=== PATIENT | male | born 1980 | race African-American/Black ===

== ENCOUNTER 2019-08-20 03:58 | Inpatient (IN) | payer SELFPAY ==
[~2019-08-20] VITALS: Ht 180.3 cm; Wt 116.1 kg
[2019-08-20] MEDS ORDERED: ASPIRIN 325MG TABLET PO ONE (05:45)
[2019-08-20] MEDS ORDERED: MAGNESIUM/ALUMINUM HYDROXIDE/SIMETHICONE 30ML UDC PO ONE (05:45)
[2019-08-20] MEDS ORDERED: VISCOUS LIDOCAINE 2% 15 ML UDC PO ONE (05:45)
[2019-08-20 06:11] LABS: BASOPHILS % 0.4 % (0.0-2.0); EOSINOPHILS % 0.7 % (0.0-5.0); HEMATOCRIT. 38.4 % (42.0-52.0); HEMOGLOBIN. 12.3 g/dL (14.0-18.0); LYMPHOCYTES % 30.1 % (20.0-50.0); MEAN CORPUSCULAR HEMOGLOBIN 25.2 pg (28.0-32.0); MEAN CORPUSCULAR VOLUME 78.4 fL (80.0-94.0); MEAN PLATELET VOLUME 9.2 fl (7.4-10.4); MONOCYTES % 7.5 % (2.0-8.0); NEUTROPHILS % 61.3 % (40.0-76.0); PLATELET 222 x1000/uL (130-400); RED CELL DISTRIBUTION WIDTH 15.3 % (11.6-14.6)
[2019-08-20 06:19] LABS: CHLORIDE 104 mEq/L (98-107)
[2019-08-20 15:15] VITALS: BP 148/101
[2019-08-20] MEDS ORDERED: ONDANSETRON HCL 4MG/2ML INJ IV PRN (15:15)
[2019-08-20] MEDS ORDERED: MAGNESIUM/ALUMINUM HYDROXIDE/SIMETHICONE 30ML UDC PO PRN (15:15)
[2019-08-20] MEDS ORDERED: DIPHENHYDRAMINE 50MG/ML VIAL IV PRN (15:15)
[2019-08-20] MEDS ORDERED: ACETAMINOPHEN 325MG TABLET PO PRN (15:15)
[2019-08-20 16:00] VITALS: BP 148/101
[2019-08-20] MEDS: PANTOPRAZOLE SODIUM 40 MG/VIAL IV SCH ×2 (16:07→21:06)
[2019-08-20] MEDS: SODIUM CHLORIDE 0.9% 1,000 ML IV SCH (16:09)
[2019-08-20] MEDS: CLONIDINE 0.1MG TABLET PO PRN (16:23)
[2019-08-20 17:39] LABS: HEMATOCRIT 38.2 % (42.0-52.0); HEMOGLOBIN 12.2 g/dL (14.0-18.0); MEAN CORPUSCULAR HEMOGLOBIN 24.8 pg (28.0-32.0); MEAN CORPUSCULAR VOLUME 77.9 fL (80.0-94.0); PLATELET 221 x1000/uL (130-400); RED CELL DISTRIBUTION WIDTH 15.4 % (11.6-14.6)
[2019-08-20 20:00] VITALS: BP 127/89
[2019-08-21] VITALS: BP 133/88
[2019-08-21 04:00] VITALS: BP 137/94
[2019-08-21] MEDS: SODIUM CHLORIDE 0.9% 1,000 ML IV SCH ×3 (04:49→21:19)
[2019-08-21 08:00] VITALS: BP 160/102
[2019-08-21] MEDS: PANTOPRAZOLE SODIUM 40 MG/VIAL IV SCH ×2 (08:32→21:12)
[2019-08-21] MEDS: CLONIDINE 0.1MG TABLET PO PRN (08:32)
[2019-08-21] MEDS ORDERED: PANTOPRAZOLE SODIUM 40 MG/VIAL IV SCH (09:00)
[2019-08-21 12:00] VITALS: BP 122/85
[2019-08-21 16:00] VITALS: BP 146/93
[2019-08-21] MEDS ORDERED: SORBITOL 70% SOLN 30ML PO NR ×2 (16:00→20:00)
[2019-08-21 16:30] LABS: HEMOGLOBIN 12.1 g/dL (14.0-18.0); MEAN CORPUSCULAR HEMOGLOBIN 25.1 pg (28.0-32.0); MEAN CORPUSCULAR VOLUME 78.5 fL (80.0-94.0); PLATELET 212 x1000/uL (130-400); RED BLOOD CELL COUNT 4.84 mill/uL (4.7-6.1); RED CELL DISTRIBUTION WIDTH 15.2 % (11.6-14.6)
[2019-08-21 20:00] VITALS: BP 133/84
[2019-08-22] VITALS: BP 135/83
[2019-08-22 04:00] VITALS: BP 131/86
[2019-08-22 06:08] LABS: BASOPHILS % 0.4 % (0.0-2.0); EOSINOPHILS % 1.3 % (0.0-5.0); HEMATOCRIT. 38.7 % (42.0-52.0); HEMOGLOBIN. 12.4 g/dL (14.0-18.0); MEAN CORPUSCULAR VOLUME 77.9 fL (80.0-94.0); MEAN PLATELET VOLUME 8.9 fl (7.4-10.4); MONOCYTES % 7.6 % (2.0-8.0); NEUTROPHILS % 61.7 % (40.0-76.0); PLATELET 205 x1000/uL (130-400); RED BLOOD CELL COUNT 4.97 mill/uL (4.7-6.1); RED CELL DISTRIBUTION WIDTH 15.5 % (11.6-14.6)
[2019-08-22 06:15] LABS: INR 1.1; PROTHROMBIN TIME 11.4 sec (9.6-11.0)
[2019-08-22 06:18] LABS: CHLORIDE 108 mEq/L (98-107)
[2019-08-22] MEDS ORDERED: NA PHOS,M-B/NA PHOS,DI-BA ENEMA 118ML PR NR (07:00)
[2019-08-22 08:00] VITALS: BP 120/85
[2019-08-22] MEDS: PANTOPRAZOLE SODIUM 40 MG/VIAL IV SCH (08:26)
[2019-08-22] MEDS: SODIUM CHLORIDE 0.9% 1,000 ML IV SCH (08:26)
[2019-08-22] MEDS ORDERED: MIDAZOLAM HCL 5 MG/5 ML VIAL IV PRN (10:57)
[2019-08-22] MEDS ORDERED: MIDAZOLAM HCL 5 MG/5 ML VIAL ONE (10:57)
[2019-08-22] MEDS ORDERED: FENTANYL CITRATE/PF 50MCG/ML 2ML VIAL ONE (10:57)
[2019-08-22] MEDS ORDERED: FENTANYL CITRATE/PF 50MCG/ML 2ML VIAL IV PRN (10:59)
== END 2019-08-22 14:49 | disposition home or self-care (01) | DRG 254 ==
LOC: ER 04:49 → 6EST 09:14 → EDBEDREQSVC 09:18 → EDBEDREQTM 09:18 → EDBEDREQ 09:18 → ENRESERV 13:08
PROVIDERS: ADMIT Internal Medicine; ATTEND Internal Medicine
PROC: 0DBQ8ZZ Excision of Anus, Via Natural or Artificial Opening Endoscopic (ICD-10-PCS; principal; 2019-08-22)
DX: K62.0 Anal polyp (principal); K92.2 Gastrointestinal hemorrhage, unspecified; R07.9 Chest pain, unspecified; D64.9 Anemia, unspecified; E66.9 Obesity, unspecified; I10 Essential (primary) hypertension; Z68.35 Body mass index [BMI] 35.0-35.9, adult
CPT/HCPCS: 36415; 71045; 80053; 83880; 84484; 85025; 85027; 86850; 86900; 93005; 99285; C9113; J2250; J3010; J7030

== ENCOUNTER 2021-04-27 21:46 | Inpatient (IN) | payer OTHER ==
[~2021-04-27] VITALS: Ht 180.3 cm; Wt 109.3 kg
[2021-04-27] MEDS ORDERED: PANTOPRAZOLE SODIUM 40 MG/VIAL IV STA (22:44)
[2021-04-27] MEDS ORDERED: ASPIRIN 81MG TABLET PO ONE (22:45)
[2021-04-27] MEDS ORDERED: NITROGLYCERIN 0.4MG TABLET SL SL PRN (22:45)
[2021-04-27 23:26] LABS: CHLORIDE 106 mEq/L (98-107)
[2021-04-27 23:30] LABS: PROTHROMBIN TIME 11.2 sec (9.6-11.0)
[2021-04-27 23:38] LABS: BASOPHILS % 0.6 % (0.0-2.0); EOSINOPHILS % 0.7 % (0.0-5.0); HEMATOCRIT. 35.8 % (42.0-52.0); HEMOGLOBIN. 11.3 g/dL (14.0-18.0); LYMPHOCYTES % 28.7 % (20.0-50.0); MEAN CORPUSCULAR HEMOGLOBIN 24.7 pg (28.0-32.0); MEAN CORPUSCULAR VOLUME 78.3 fL (80.0-94.0); MEAN PLATELET VOLUME 9.4 fl (7.4-10.4); MONOCYTES % 7.7 % (2.0-8.0); NEUTROPHILS % 62.3 % (40.0-76.0); PLATELET 181 x1000/uL (130-400); RED BLOOD CELL COUNT 4.58 mill/uL (4.7-6.1); RED CELL DISTRIBUTION WIDTH 16.2 % (11.6-14.6)
[2021-04-28] MEDS ORDERED: AZITHROMYCIN 500MG/250ML 250 ML IV ONE (00:15)
[2021-04-28] MEDS ORDERED: CEFTRIAXONE 1 G PREMIX 50 ML IV ONE (00:15)
[2021-04-28] MEDS ORDERED: AZITHROMYCIN 500MG/250ML 250 ML IV SCH (02:00)
[2021-04-28] MEDS ORDERED: AZITHROMYCIN 500 MG in DEXT 5% WATER 250 ML IV SCH (02:00)
[2021-04-28] MEDS ORDERED: IOHEXOL-300 100 ML BOTTLE ONE (02:01)
[2021-04-28] MEDS ORDERED: ASPI-1497 PO (09:31)
[2021-04-28] MEDS ORDERED: LISI20TA31 PO (09:31)
[2021-04-28] MEDS ORDERED: ATOR20TA65 PO (09:31)
[2021-04-28] MEDS ORDERED: CLONIDINE 0.1MG TABLET PO PRN (09:45)
[2021-04-28] MEDS ORDERED: MAGNESIUM/ALUMINUM HYDROXIDE/SIMETHICONE 30ML UDC PO PRN (09:45)
[2021-04-28] MEDS ORDERED: ACETAMINOPHEN 325MG TABLET PO PRN ×2 (09:45)
[2021-04-28] MEDS ORDERED: ONDANSETRON HCL 4MG/2ML INJ IV PRN (09:45)
[2021-04-28] MEDS ORDERED: GUAIFENESIN 200MG/10ML SUGAR FREE UDC PO PRN (09:45)
[2021-04-28] MEDS: LISINOPRIL 20MG TABLET PO SCH (10:19)
[2021-04-28 20:18] VITALS: BP 147/106
[2021-04-28] MEDS ORDERED: SORBITOL 70% SOLN 30ML PO NR (21:00)
[2021-04-28] MEDS: ATORVASTATIN CALCIUM 20MG TABLET PO SCH (22:19)
[2021-04-29] VITALS: BP 149/94
[2021-04-29 04:00] VITALS: BP 144/98
[2021-04-29] MEDS ORDERED: *PATIENT'S OWN MEDICATION STORAGE XX SCH (04:15)
[2021-04-29] MEDS ORDERED: SORBITOL 70% SOLN 30ML PO NR (06:00)
[2021-04-29 07:52] LABS: EOSINOPHILS % 1.5 % (0.0-5.0); LYMPHOCYTES % 25.2 % (20.0-50.0); MEAN CORPUSCULAR VOLUME 77.9 fL (80.0-94.0); MEAN PLATELET VOLUME 9.3 fl (7.4-10.4); MONOCYTES % 7.3 % (2.0-8.0); PLATELET 227 x1000/uL (130-400); RED BLOOD CELL COUNT 5.31 mill/uL (4.7-6.1); RED CELL DISTRIBUTION WIDTH 16.5 % (11.6-14.6)
[2021-04-29 07:54] LABS: CHLORIDE 109 mEq/L (98-107)
[2021-04-29 07:56] LABS: INR 1.1; PROTHROMBIN TIME 11.4 sec (9.6-11.0)
[2021-04-29] MEDS ORDERED: NA PHOS,M-B/NA PHOS,DI-BA ENEMA 118ML PR NR (08:00)
[2021-04-29 08:02] LABS: HEMATOCRIT. 41.4 % (42.0-52.0); HEMOGLOBIN. 13.3 g/dL (14.0-18.0)
[2021-04-29 08:03] LABS: TOTAL IRON BINDING CAPACITY 447 ug/dL (250-450)
[2021-04-29 08:15] VITALS: BP 122/87
[2021-04-29] MEDS: LISINOPRIL 20MG TABLET PO SCH (08:57)
[2021-04-29 09:14] LABS: T4 FREE 1.08 ng/dL (0.76-1.46)
[2021-04-29] MEDS ORDERED: FENTANYL CITRATE/PF 50MCG/ML 2ML VIAL ONE (09:17)
[2021-04-29] MEDS ORDERED: MIDAZOLAM HCL 5 MG/5 ML VIAL ONE (09:17)
[2021-04-29] MEDS ORDERED: MIDAZOLAM HCL 5 MG/5 ML VIAL IV PRN (10:05)
[2021-04-29] MEDS ORDERED: FENTANYL CITRATE/PF 50MCG/ML 2ML VIAL IV PRN (10:06)
[2021-04-29 12:00] VITALS: BP 124/93
[2021-04-29 16:00] VITALS: BP 120/92
[2021-04-29 20:00] VITALS: BP 126/90
[2021-04-29] MEDS: HEMORRHOIDAL SUPP PR SCH (20:28)
[2021-04-29] MEDS: ATORVASTATIN CALCIUM 20MG TABLET PO SCH (20:28)
[2021-04-30] VITALS: BP 122/82
[2021-04-30 04:00] VITALS: BP 122/80
[2021-04-30 08:00] VITALS: BP 139/96
[2021-04-30] MEDS: HEMORRHOIDAL SUPP PR SCH (09:26)
[2021-04-30] MEDS: LISINOPRIL 20MG TABLET PO SCH (09:26)
[2021-04-30 09:54] VITALS: BP 139/96
[2021-04-30] MEDS ORDERED: ASCORBIC ACID 500 MG TABLET PO SCH (11:00)
[2021-04-30] MEDS ORDERED: HYDR25SU37 RC (11:39)
[2021-04-30] MEDS ORDERED: FERR-63 PO (11:39)
[2021-04-30] MEDS ORDERED: ASCO500T20 PO (11:39)
[2021-04-30 12:00] VITALS: BP 126/84
[2021-04-30] MEDS ORDERED: FERROUS SULFATE 325MG TABLET PO SCH (12:40)
== END 2021-04-30 15:20 | disposition home or self-care (01) | DRG 254 ==
LOC: ER 21:46 → MICUSO 04-28 02:05 → 8WST 04-28 19:56
PROVIDERS: ADMIT Internal Medicine; ATTEND Internal Medicine
PROC: 0DB78ZX Excision of Stomach, Pylorus, Via Natural or Artificial Opening Endoscopic, Diagnostic (ICD-10-PCS; principal; 2021-04-29)
PROC: 0DJD8ZZ Inspection of Lower Intestinal Tract, Via Natural or Artificial Opening Endoscopic (ICD-10-PCS; 2021-04-29)
DX: K64.8 Other hemorrhoids (principal); K76.0 Fatty (change of) liver, not elsewhere classified; D50.9 Iron deficiency anemia, unspecified; Z20.822 Contact with and (suspected) exposure to COVID-19; R07.9 Chest pain, unspecified; I25.10 Atherosclerotic heart disease of native coronary artery without angina pectoris; E78.5 Hyperlipidemia, unspecified; I10 Essential (primary) hypertension; J98.11 Atelectasis; K44.9 Diaphragmatic hernia without obstruction or gangrene; K57.90 Diverticulosis of intestine, part unspecified, without perforation or abscess without bleeding; K29.70 Gastritis, unspecified, without bleeding; Z79.82 Long term (current) use of aspirin; I25.2 Old myocardial infarction; Z79.899 Other long term (current) drug therapy; Z91.011 Allergy to milk products
CPT/HCPCS: 36415; 71045; 74177; 80053; 80061; 82728; 83036; 83540; 83550; 83735; 83880; 84100; 84439; 84443; 84484; 85025; 85379; 86850; 86900; 87426; 88305; 88312; 88313; 93005; 93306; 99285; C9113; J0456; J0696; J2250; J3010; J7060; Q9967

== ENCOUNTER 2021-06-25 11:52 | Emergency (ER) | payer OTHER ==
[~2021-06-25] VITALS: Ht 177.8 cm; Wt 113.0 kg
[~2021-06-25 11:52] MED LIST: ASCO500T20 PO; ASPI-1497 PO; ATOR20TA65 PO; FERR-63 PO; HYDR25SU37 RC; LISI20TA31 PO
[2021-06-25 13:13] LABS: BASOPHILS % 0.8 % (0.0-2.0); EOSINOPHILS % 1.4 % (0.0-5.0); HEMATOCRIT. 40.5 % (42.0-52.0); HEMOGLOBIN. 12.9 g/dL (14.0-18.0); LYMPHOCYTES % 27.4 % (20.0-50.0); MEAN CORPUSCULAR HEMOGLOBIN 25.2 pg (28.0-32.0); MEAN PLATELET VOLUME 9.5 fl (7.4-10.4); MONOCYTES % 8.3 % (2.0-8.0); NEUTROPHILS % 62.1 % (40.0-76.0); PLATELET 197 x1000/uL (130-400); RED BLOOD CELL COUNT 5.13 mill/uL (4.7-6.1); RED CELL DISTRIBUTION WIDTH 14.7 % (11.6-14.6)
[2021-06-25 13:18] LABS: CHLORIDE 104 mEq/L (98-107)
[2021-06-25 13:21] LABS: CLARITY URINE CLEAR (CLEAR); COLOR URINE YELLOW (YELLOW); KETONES URINE NEGATIVE (NEGATIVE); LEUKOCYTE ESTERASE URINE NEGATIVE (NEGATIVE); NITRITE URINE NEGATIVE (NEGATIVE); OCCULT BLOOD URINE NEGATIVE (NEGATIVE); PH URINE 7.5 (4.5-8.0); PROTEIN URINE NEGATIVE (NEGATIVE); SPECIFIC GRAVITY URINE 1.008 (1.005-1.030); UROBILINOGEN URINE 0.2 E.U./dL (0.2-1.0)
[2021-06-25 16:26] VITALS: BP 132/96
== END 2021-06-25 16:36 | disposition home or self-care (01) ==
LOC: ER 11:52
DX: I10 Essential (primary) hypertension (principal); R00.2 Palpitations; R73.9 Hyperglycemia, unspecified; D64.9 Anemia, unspecified
CPT/HCPCS: 36415; 71045; 80048; 81003; 84484; 85025; 93005; 99285

== ENCOUNTER 2021-08-10 22:17 | Emergency (ER) | payer OTHER ==
[~2021-08-10] VITALS: Ht 177.8 cm; Wt 109.9 kg
[2021-08-10 22:43] VITALS: BP 135/95
[2021-08-11 00:57] LABS: BASOPHILS % 0.4 % (0.0-2.0); EOSINOPHILS % 0.7 % (0.0-5.0); HEMATOCRIT. 38.6 % (42.0-52.0); LYMPHOCYTES % 29.8 % (20.0-50.0); MEAN CORPUSCULAR HEMOGLOBIN 24.4 pg (28.0-32.0); MEAN CORPUSCULAR VOLUME 78.5 fL (80.0-94.0); MEAN PLATELET VOLUME 9.1 fl (7.4-10.4); MONOCYTES % 8.2 % (2.0-8.0); NEUTROPHILS % 60.9 % (40.0-76.0); PLATELET 182 x1000/uL (130-400); RED BLOOD CELL COUNT 4.92 mill/uL (4.7-6.1); RED CELL DISTRIBUTION WIDTH 14.7 % (11.6-14.6)
[2021-08-11 01:00] LABS: CHLORIDE 108 mEq/L (98-107)
[2021-08-11] MEDS ORDERED: IBUP-2029 MT (09:54)
== END 2021-08-11 10:25 | disposition home or self-care (01) ==
LOC: ER 22:17
DX: R07.89 Other chest pain (principal); I10 Essential (primary) hypertension
CPT/HCPCS: 36415; 71045; 80053; 83880; 84484; 85025; 93005; 99285

== ENCOUNTER 2022-05-02 09:25 | Emergency (ER) | payer OTHER ==
[~2022-05-02] VITALS: Ht 180.3 cm; Wt 114.0 kg
[~2022-05-02 09:25] MED LIST changes: +AMLO10TA80 PO; -ASCO500T20 PO; +ASPI-1406 PO; -ASPI-1497 PO; +ATOR20TA PO; -ATOR20TA65 PO; -FERR-63 PO; -HYDR25SU37 RC; -LISI20TA31 PO; +LISI40TA13 PO
[2022-05-02 12:55] LABS: BASOPHILS % 0.8 % (0.0-2.0); EOSINOPHILS % 0.8 % (0.0-5.0); HEMATOCRIT. 40.4 % (42.0-52.0); HEMOGLOBIN. 12.8 g/dL (14.0-18.0); LYMPHOCYTES % 26.9 % (20.0-50.0); MEAN CORPUSCULAR HEMOGLOBIN 24.9 pg (28.0-32.0); MEAN CORPUSCULAR VOLUME 78.8 fL (80.0-94.0); MONOCYTES % 6.4 % (2.0-8.0); NEUTROPHILS % 65.1 % (40.0-76.0); PLATELET 210 x1000/uL (130-400); RED BLOOD CELL COUNT 5.13 mill/uL (4.7-6.1); RED CELL DISTRIBUTION WIDTH 15.2 % (11.6-14.6)
[2022-05-02 13:05] LABS: CHLORIDE 107 mEq/L (98-107)
[2022-05-02] MEDS ORDERED: HYDR25SU37 RC (14:08)
[2022-05-02 14:50] VITALS: BP 127/87
== END 2022-05-02 14:50 | disposition home or self-care (01) ==
LOC: ER 09:25
DX: K64.8 Other hemorrhoids (principal); D64.9 Anemia, unspecified; I10 Essential (primary) hypertension; E78.00 Pure hypercholesterolemia, unspecified; Z93.3 Colostomy status; Z98.890 Other specified postprocedural states; Z91.011 Allergy to milk products
CPT/HCPCS: 36415; 80053; 85025; 85044; 86850; 86900; 99283

== ENCOUNTER 2022-10-12 05:53 | Emergency (ER) | payer OTHER ==
[~2022-10-12] VITALS: Ht 180.3 cm; Wt 123.0 kg
[~2022-10-12 05:53] MED LIST changes: +HYDR25SU37 RC
[2022-10-12 06:00] VITALS: PULSE 92; RESP 16
[2022-10-12 06:05] VITALS: BP 121/86; TEMP 98.5; O2SAT 97
== END 2022-10-12 10:27 | disposition home or self-care (01) ==
LOC: ER 05:53
DX: U07.1 COVID-19 (principal); I10 Essential (primary) hypertension; E78.00 Pure hypercholesterolemia, unspecified; Z91.011 Allergy to milk products; Z98.890 Other specified postprocedural states
CPT/HCPCS: 99283; 87426; 87804 ×2; C9803

== ENCOUNTER 2024-03-26 18:31 | Emergency (ER) | payer OTHER ==
[~2024-03-26] VITALS: Ht 177.8 cm; Wt 115.0 kg
[2024-03-26 18:37] VITALS: O2SAT 97
[2024-03-26 21:34] LABS: BASOPHILS % 0.9 % (0.0-2.0); DIFFERENTIAL COMMENT 0; EOSINOPHILS % 1.1 % (0.0-5.0); HEMATOCRIT. 43.2 % (42.0-52.0); HEMOGLOBIN. 13.5 g/dL (14.0-18.0); LYMPHOCYTES % 30.8 % (20.0-50.0); MEAN CORPUSCULAR HEMOGLOBIN 24.8 pg (28.0-32.0); MEAN CORPUSCULAR HGB CONC 31.2 g/dL (31.0-37.0); MEAN CORPUSCULAR VOLUME 79.5 fL (80.0-94.0); MEAN PLATELET VOLUME 9.3 fl (7.4-10.4); MONOCYTES % 7.5 % (2.0-8.0); NEUTROPHILS % 59.7 % (40.0-76.0); PLATELET 257 x1000/uL (130-400); RED BLOOD CELL COUNT 5.42 mill/uL (4.7-6.1); RED CELL DISTRIBUTION WIDTH 16.8 % (11.6-14.6); WHITE BLOOD COUNT 6.7 x1000/uL (4.5-11.0)
[2024-03-26 21:43] LABS: CHLORIDE 105 mEq/L (98-107); SODIUM 141 mEq/L (136-145)
[2024-03-26 21:44] LABS: CALCIUM 9.6 mg/dL (8.7-10.4); CARBON DIOXIDE 29 mEq/L (21-32); PARTIAL THROMBOPLASTIN TIME 27.7 sec (23.4-31.0); PROTHROMBIN TIME 10.9 sec (9.6-11.0)
[2024-03-26 21:49] LABS: CREATININE 0.9 mg/dL (0.6-1.3); GLUCOSE 91 mg/dL (70-105); UREA NITROGEN BLOOD 10 mg/dL (9-23)
[2024-03-26 21:51] LABS: ALANINE AMINOTRANSFERASE 55 IU/L (10-49); ALBUMIN 4.4 g/dL (3.2-4.8); ASPARTATE AMINOTRANSFERASE 36 IU/L (<34); BILIRUBIN TOTAL 0.3 mg/dL (0.1-1.0); PROTEIN TOTAL 7.4 g/dL (6.0-8.3)
[2024-03-26 21:53] LABS: BILIRUBIN DIRECT < 0.1 mg/dL (<=3.0)
[2024-03-27] MEDS ORDERED: HYDR25SU37 RC (00:36)
[2024-03-27 00:43] VITALS: BP 154/82; PULSE 89; RESP 19; TEMP 36.66960; O2SAT 98
== END 2024-03-27 07:42 | disposition home or self-care (01) ==
LOC: ER 18:31
DX: K62.5 Hemorrhage of anus and rectum (principal); I10 Essential (primary) hypertension; Z79.899 Other long term (current) drug therapy; Z79.82 Long term (current) use of aspirin
CPT/HCPCS: 36415; 80048; 80076; 85025; 86850; 86900; 99283